=== PATIENT | female | born 1970 | race Caucasian/White ===

== ENCOUNTER → 2020-04-11 | Outpatient (CLI) | payer MEDICARE, SELFPAY | LOC: OPSV 04-04 07:30 | PROC: 0HRMXJ3 Replacement of Right Foot Skin with Synthetic Substitute, Full Thickness, External Approach (ICD-10-PCS; principal; 2020-04-11) | DX: E11.621 Type 2 diabetes mellitus with foot ulcer (principal); L97.512 Non-pressure chronic ulcer of other part of right foot with fat layer exposed; L97.422 Non-pressure chronic ulcer of left heel and midfoot with fat layer exposed; Z79.4 Long term (current) use of insulin | CPT/HCPCS: Q4186 ==

== ENCOUNTER → 2020-04-18 | Outpatient (CLI) | payer MEDICARE, SELFPAY | LOC: OPSV 07:00 | PROC: 0HRNXJ3 Replacement of Left Foot Skin with Synthetic Substitute, Full Thickness, External Approach (ICD-10-PCS; principal; 2020-04-18) | PROC: 0HRMXJ3 Replacement of Right Foot Skin with Synthetic Substitute, Full Thickness, External Approach (ICD-10-PCS; 2020-04-18) | DX: E11.621 Type 2 diabetes mellitus with foot ulcer (principal); L97.422 Non-pressure chronic ulcer of left heel and midfoot with fat layer exposed; L97.512 Non-pressure chronic ulcer of other part of right foot with fat layer exposed; Z79.4 Long term (current) use of insulin | CPT/HCPCS: Q4186 ==

== ENCOUNTER → 2020-04-25 | Outpatient (CLI) | payer MEDICARE, SELFPAY | END | disposition home or self-care (01) | LOC: OPSV 06:33 | PROC: 0HR Skin and Breast, Replacement (ICD-10-PCS; principal; 2020-04-25) | DX: E11.621 Type 2 diabetes mellitus with foot ulcer (principal); L97.522 Non-pressure chronic ulcer of other part of left foot with fat layer exposed; Z79.4 Long term (current) use of insulin | CPT/HCPCS: Q4186 ==

== ENCOUNTER → 2020-05-30 | Outpatient (CLI) | payer MEDICARE, SELFPAY | LOC: OPSV 06:41 | PROC: 0HRMXJ3 Replacement of Right Foot Skin with Synthetic Substitute, Full Thickness, External Approach (ICD-10-PCS; principal; 2020-05-30) | DX: E11.621 Type 2 diabetes mellitus with foot ulcer (principal); L97.512 Non-pressure chronic ulcer of other part of right foot with fat layer exposed; Z79.4 Long term (current) use of insulin | CPT/HCPCS: Q4186 ==

== ENCOUNTER → 2020-06-06 | Outpatient (CLI) | payer MEDICARE, SELFPAY | END | disposition home or self-care (01) | LOC: OPSV 06:56 | DX: E11.621 Type 2 diabetes mellitus with foot ulcer (principal); L97.512 Non-pressure chronic ulcer of other part of right foot with fat layer exposed; L97.422 Non-pressure chronic ulcer of left heel and midfoot with fat layer exposed; Z79.4 Long term (current) use of insulin | CPT/HCPCS: Q4186 ==

== ENCOUNTER → 2020-06-13 | Outpatient (CLI) | payer MEDICARE, SELFPAY | LOC: OPSV 06:50 | DX: E11.621 Type 2 diabetes mellitus with foot ulcer (principal); L97.512 Non-pressure chronic ulcer of other part of right foot with fat layer exposed; L97.522 Non-pressure chronic ulcer of other part of left foot with fat layer exposed; Z79.4 Long term (current) use of insulin | CPT/HCPCS: Q4186 ==

== ENCOUNTER → 2020-06-20 | Outpatient (CLI) | payer MEDICARE, SELFPAY | LOC: OPSV 07:00 | DX: E11.621 Type 2 diabetes mellitus with foot ulcer (principal); L97.512 Non-pressure chronic ulcer of other part of right foot with fat layer exposed; L97.429 Non-pressure chronic ulcer of left heel and midfoot with unspecified severity; Z79.4 Long term (current) use of insulin | CPT/HCPCS: Q4186 ==

== ENCOUNTER → 2020-06-27 | Outpatient (CLI) | payer MEDICARE, SELFPAY | LOC: OPSV 06:47 | DX: E11.621 Type 2 diabetes mellitus with foot ulcer (principal); L97.512 Non-pressure chronic ulcer of other part of right foot with fat layer exposed; B07.0 Plantar wart; Z79.4 Long term (current) use of insulin | CPT/HCPCS: Q4186 ==

== ENCOUNTER → 2020-07-02 | Outpatient (CLI) | payer MEDICARE, SELFPAY | LOC: OPSV 07:00 | DX: E11.621 Type 2 diabetes mellitus with foot ulcer (principal); L97.512 Non-pressure chronic ulcer of other part of right foot with fat layer exposed; B07.0 Plantar wart; Z79.4 Long term (current) use of insulin | CPT/HCPCS: Q4186 ==

== ENCOUNTER → 2020-07-09 | Outpatient (CLI) | payer MEDICARE, SELFPAY | LOC: HEART 5 08:08 | DX: R01.1 Cardiac murmur, unspecified (principal); I10 Essential (primary) hypertension; I08.3 Combined rheumatic disorders of mitral, aortic and tricuspid valves | CPT/HCPCS: 93306 ==

== ENCOUNTER → 2020-07-09 | Outpatient (CLI) | payer MEDICARE, SELFPAY ==
[~2020-07-09] VITALS: Ht 180.3 cm; Wt 128.4 kg
== END ==
LOC: OPSV 06:53
DX: E11.621 Type 2 diabetes mellitus with foot ulcer (principal); L97.512 Non-pressure chronic ulcer of other part of right foot with fat layer exposed; B07.9 Viral wart, unspecified; Z79.4 Long term (current) use of insulin
CPT/HCPCS: Q4186